=== PATIENT | male | born 1980 | race Two or more races ===

== ENCOUNTER 2019-06-17 08:02 | Outpatient (CLI) | payer OTHER | END 2019-06-17 08:07 | disposition home or self-care (01) | LOC: NUCLEAR 08:02 | DX: R19.7 Diarrhea, unspecified (principal); K80.00 Calculus of gallbladder with acute cholecystitis without obstruction | CPT/HCPCS: 78227; A9537 ==

== ENCOUNTER 2021-08-31 06:30 | Day surgery (SDC) | payer OTHER ==
[~2021-08-31 06:30] MED LIST: AVAPRO150 MG PO; PEPCID AC20 MG PO
== END 2021-08-31 16:40 | disposition home or self-care (01) ==
LOC: CIR.AMB 06:30
PROVIDERS: ATTEND Urology
DX: C62.92 Malignant neoplasm of left testis, unspecified whether descended or undescended (principal); Z20.822 Contact with and (suspected) exposure to COVID-19

== ENCOUNTER 2021-10-08 09:30 | Outpatient (CLI) | payer OTHER | END 2021-10-08 09:41 | disposition home or self-care (01) | LOC: TOM 09:30 | PROVIDERS: ATTEND Urology | DX: R10.84 Generalized abdominal pain (principal) ==

== ENCOUNTER 2022-01-24 12:00 | Inpatient (IN) | payer OTHER ==
[~2022-01-24] VITALS: Ht 177.8 cm; Wt 70.8 kg
[2022-01-25] MEDS ORDERED: BACLOFEN10 MG (14:28)
[2022-02-20] MEDS ORDERED: XOPENEX0.63 MG/3 IH (14:39)
[2022-02-20] MEDS ORDERED: PEPCID AC20 MG PO (14:39)
[2022-02-20] MEDS ORDERED: B COMPLEX PO (14:39)
[2022-02-20] MEDS ORDERED: IRBESARTAN75 MG PO (14:39)
[2022-02-20] MEDS ORDERED: ZOFRAN8 MG PO (14:39)
[2022-02-20] MEDS ORDERED: TRAZODONE HCL50 MG PO (14:39)
[2022-02-20] MEDS ORDERED: LYRICA50 MG PO (14:39)
== END 2022-02-20 14:59 | disposition home or self-care (01) | DRG 987 ==
LOC: ER 12:00 → MEDI 21:26 → MEDJ 02-07 18:21 → MEDI 02-07 20:38
PROVIDERS: Otolaryngology; ADMIT Internal Medicine Hematology & Oncology; ATTEND Internal Medicine Hematology & Oncology
PROC: 3E0436Z Introduction of Nutritional Substance into Central Vein, Percutaneous Approach (ICD-10-PCS; 2022-01-25)
PROC: 0JB53ZX Excision of Left Neck Subcutaneous Tissue and Fascia, Percutaneous Approach, Diagnostic (ICD-10-PCS; 2022-01-26)
PROC: 02HV33Z Insertion of Infusion Device into Superior Vena Cava, Percutaneous Approach (ICD-10-PCS; 2022-01-26)
PROC: 0CJS8ZZ Inspection of Larynx, Via Natural or Artificial Opening Endoscopic (ICD-10-PCS; 2022-02-04)
PROC: 0DH63UZ Insertion of Feeding Device into Stomach, Percutaneous Approach (ICD-10-PCS; 2022-02-08)
PROC: 0KB30ZX Excision of Left Neck Muscle, Open Approach, Diagnostic (ICD-10-PCS; principal; 2022-02-08 07:00)
PROC: 3E03305 Introduction of Other Antineoplastic into Peripheral Vein, Percutaneous Approach (ICD-10-PCS; 2022-02-15)
DX: C62.12 Malignant neoplasm of descended left testis (principal); J18.8 Other pneumonia, unspecified organism; C79.89 Secondary malignant neoplasm of other specified sites; C79.51 Secondary malignant neoplasm of bone; C78.01 Secondary malignant neoplasm of right lung; C78.02 Secondary malignant neoplasm of left lung; M54.2 Cervicalgia; E86.0 Dehydration; R13.19 Other dysphagia; R49.0 Dysphonia; I10 Essential (primary) hypertension; G89.3 Neoplasm related pain (acute) (chronic); G52.1 Disorders of glossopharyngeal nerve; F43.23 Adjustment disorder with mixed anxiety and depressed mood
CPT/HCPCS: 70544; 70548

== ENCOUNTER 2022-03-18 09:22 | Outpatient (CLI) | payer OTHER ==
[~2022-03-18 09:22] MED LIST changes: +B COMPLEX PO; +BACLOFEN10 MG; +IRBESARTAN75 MG PO; +LYRICA50 MG PO; +TRAZODONE HCL50 MG PO; +XOPENEX0.63 MG/3 IH; +ZOFRAN8 MG PO
== END 2022-03-18 09:23 | disposition home or self-care (01) ==
LOC: RAD 09:22
PROVIDERS: ATTEND Internal Medicine Hematology & Oncology
DX: C62.90 Malignant neoplasm of unspecified testis, unspecified whether descended or undescended (principal); C78.01 Secondary malignant neoplasm of right lung; C78.02 Secondary malignant neoplasm of left lung; Z92.21 Personal history of antineoplastic chemotherapy

== ENCOUNTER 2022-05-09 14:02 | Outpatient (CLI) | payer OTHER | END 2022-05-09 14:03 | disposition home or self-care (01) | LOC: LAB 14:02 | PROVIDERS: ATTEND Radiology Diagnostic Radiology | DX: C62.90 Malignant neoplasm of unspecified testis, unspecified whether descended or undescended (principal) ==

== ENCOUNTER 2022-05-19 08:17 | Outpatient (CLI) | payer OTHER | END 2022-05-19 08:34 | disposition home or self-care (01) | LOC: TOM 08:17 | PROVIDERS: ATTEND Internal Medicine Hematology & Oncology | DX: C62.90 Malignant neoplasm of unspecified testis, unspecified whether descended or undescended (principal); C78.01 Secondary malignant neoplasm of right lung; C78.02 Secondary malignant neoplasm of left lung; C79.51 Secondary malignant neoplasm of bone; Z92.21 Personal history of antineoplastic chemotherapy ==

== ENCOUNTER 2022-06-02 14:55 | Inpatient (IN) | payer OTHER ==
[~2022-06-02] VITALS: Ht 170.2 cm; Wt 61.2 kg
[2022-06-03] MEDS ORDERED: BACLOFEN10 MG (08:19)
[2022-06-03] MEDS ORDERED: B COMPLEX1 EACH PO (08:19)
[2022-06-05] MEDS ORDERED: DECADRON4 MG PO (16:49)
== END 2022-06-05 22:39 | disposition home or self-care (01) | DRG 552 ==
LOC: SEC-K 14:55 → SURH 20:11
PROVIDERS: ADMIT Internal Medicine Hematology & Oncology; ATTEND Internal Medicine Hematology & Oncology
PROC: B020ZZZ Computerized Tomography (CT Scan) of Brain (ICD-10-PCS; principal; 2022-06-02)
DX: M54.81 Occipital neuralgia (principal); C79.31 Secondary malignant neoplasm of brain; C78.01 Secondary malignant neoplasm of right lung; C78.02 Secondary malignant neoplasm of left lung; C79.51 Secondary malignant neoplasm of bone; C62.90 Malignant neoplasm of unspecified testis, unspecified whether descended or undescended; M62.838 Other muscle spasm; Z20.822 Contact with and (suspected) exposure to COVID-19; I10 Essential (primary) hypertension; Z92.21 Personal history of antineoplastic chemotherapy
CPT/HCPCS: 70553

== ENCOUNTER 2022-06-06 17:46 | Inpatient (IN) | payer OTHER ==
[~2022-06-06] VITALS: Ht 152.4 cm; Wt 60.3 kg
[~2022-06-06 17:46] MED LIST changes: +B COMPLEX1 EACH PO; +DECADRON4 MG PO
== END 2022-07-12 04:09 | disposition expired | DRG 542 ==
LOC: SURH 17:46 → ICU 17:46
PROVIDERS: ADMIT Internal Medicine Hematology & Oncology; ATTEND Internal Medicine Hematology & Oncology
PROC: BW2110Z Computerized Tomography (CT Scan) of Abdomen and Pelvis using Low Osmolar Contrast, Unenhanced and Enhanced (ICD-10-PCS; 2022-06-06)
PROC: B030Y0Z Magnetic Resonance Imaging (MRI) of Brain using Other Contrast, Unenhanced and Enhanced (ICD-10-PCS; 2022-06-06)
PROC: 3E0F7SF Introduction of Other Gas into Respiratory Tract, Via Natural or Artificial Opening (ICD-10-PCS; 2022-06-12)
PROC: 0BH18EZ Insertion of Endotracheal Airway into Trachea, Via Natural or Artificial Opening Endoscopic (ICD-10-PCS; principal; 2022-06-13)
PROC: 5A1955Z Respiratory Ventilation, Greater than 96 Consecutive Hours (ICD-10-PCS; 2022-06-13)
PROC: 4A12X4Z Monitoring of Cardiac Electrical Activity, External Approach (ICD-10-PCS; 2022-06-13)
PROC: B24BYZZ Ultrasonography of Heart with Aorta using Other Contrast (ICD-10-PCS; 2022-06-13)
PROC: 30243R1 Transfusion of Nonautologous Platelets into Central Vein, Percutaneous Approach (ICD-10-PCS; 2022-06-16)
PROC: 02HV33Z Insertion of Infusion Device into Superior Vena Cava, Percutaneous Approach (ICD-10-PCS; 2022-06-29)
PROC: BW2 Imaging, Anatomical Regions, Computerized Tomography (CT Scan) (ICD-10-PCS; 2022-06-29)
PROC: 30243N1 Transfusion of Nonautologous Red Blood Cells into Central Vein, Percutaneous Approach (ICD-10-PCS; 2022-07-04)
PROC: BW2810Z Computerized Tomography (CT Scan) of Head using Low Osmolar Contrast, Unenhanced and Enhanced (ICD-10-PCS; 2022-07-07)
PROC: 4A00X4Z Measurement of Central Nervous Electrical Activity, External Approach (ICD-10-PCS; 2022-07-11)
DX: C79.51 Secondary malignant neoplasm of bone (principal); J96.01 Acute respiratory failure with hypoxia; A40.9 Streptococcal sepsis, unspecified; G82.50 Quadriplegia, unspecified; R65.21 Severe sepsis with septic shock; C79.31 Secondary malignant neoplasm of brain; G95.29 Other cord compression; G99.2 Myelopathy in diseases classified elsewhere; G81.94 Hemiplegia, unspecified affecting left nondominant side; C78.00 Secondary malignant neoplasm of unspecified lung; E87.1 Hypo-osmolality and hyponatremia; E87.4 Mixed disorder of acid-base balance; C79.49 Secondary malignant neoplasm of other parts of nervous system; G53 Cranial nerve disorders in diseases classified elsewhere; G44.89 Other headache syndrome; M48.01 Spinal stenosis, occipito-atlanto-axial region; M54.81 Occipital neuralgia; C62.90 Malignant neoplasm of unspecified testis, unspecified whether descended or undescended; Z93.1 Gastrostomy status; Z95.9 Presence of cardiac and vascular implant and graft, unspecified; E09.65 Drug or chemical induced diabetes mellitus with hyperglycemia; T38.0X5A Adverse effect of glucocorticoids and synthetic analogues, initial encounter; Z66 Do not resuscitate
CPT/HCPCS: 240; 70496; 70498; 70552